=== PATIENT | female | born 1980 | race Caucasian/White ===

== ENCOUNTER 2018-07-23 08:31 | Emergency (ER) | payer BC ==
[~2018-07-23] VITALS: Wt 78.0 kg
[2018-07-23 08:37] VITALS: BP 123/78; PULSE 66; RESP 18
[2018-07-23] MEDS ORDERED: morphine 4 MG/ML VIAL IV STA (09:11)
[2018-07-23] MEDS ORDERED: ONDANSETRON 4 MG INJ IV STA (09:11)
[2018-07-23] MEDS ORDERED: SOD CHLORIDE 0.9% 1,000 ML IV STA (09:11)
[2018-07-23] MEDS ORDERED: ACET500C5 PO (11:24)
--- NOTE | 2018-07-23 15:28 | ERD ---
ER Documentation Chief Complaint Chief Complaint GENERAL FRONTAL ABD PAIN SINCE LAST NIGHT. NO N/V. NO DYSURIA HPI 38-year-old female patient with no significant past medical history presents to ED complaining of abdominal pain that started last night. Reports that patient's abdominal pain is very tender to palpation. Denies any vomiting, diarrhea, neck stiffness. Denies any dysuria, urgency, frequency, hematuria. Denies any chest pain, shortness of breath, fever. Denies any injuries or trauma. ROS All systems reviewed and are negative except as per history of present illness. Medications Home Meds Active Scripts Acetaminophen* (Tylophen*) 500 Mg Capsule, 1 CAP PO Q6H PRN for PAIN AND OR ELEVATED TEMP, #20 CAP Prov:MIRNA DOMINGO PA-C 07/23/18 Allergies Allergies: Coded Allergies: No Known Allergy (Unverified , 07/23/18) PMhx/Soc Medical and Surgical Hx: pt denies Medical Hx, pt denies Surgical Hx Hx Alcohol Use: No Hx Substance Use: No Hx Tobacco Use: No Smoking Status: Never smoker Physical Exam Vitals Vital Signs Date Temp Pulse Resp B/P (MAP) Pulse Ox O2 O2 Flow FiO2 Time Delivery Rate 07/23/18 98.6 66 18 123/78 98 08:37 (93) Physical Exam Const: Pug-[id number]-[id number], well-nourished. In no acute distress. Head: Atraumatic, normocephalic. No hematoma. No baer sign. Eyes: Normal Conjunctiva without injection. No purulent discharge. ENT: Normal external ear, nose. Moist oropharynx without tonsillar exudates. Non-erythematous pharynx. Uvula midline. No drooling. No trismus. Neck: No cervical midline tenderness. Full range of motion. No meningismus. No cervical lymphadenopathy. No JVD. Resp: Clear to auscultation bilaterally. No wheezing, rhonchi, rales, or crackles. No accessory muscle use. No retractions. Cardio: Regular rate and rhythm. No murmurs, rubs or gallops. Abd: Soft, mid abdominal tenderness, non distended. Normal bowel sounds. No palpable masses. No rebound tenderness. No guarding. Negative McBurney's point. Negative psoas sign. Negative obturator sign. Skin: No petechiae or rashes Back: No midline tenderness. No CVA tenderness. Ext: No cyanosis, or edema. Neur: Awake and alert. Normal gait. Normal coordination. Psych: Normal Mood and Affect Result Diagram: 07/23/1893007/23/18930 Results 24 hrs Laboratory Tests Test 07/23/18 09:21 07/23/18 09:31 POC Beta HCG, Qualitative NEGATIVE White Blood Count 10.0 10^3/ul Red Blood Count 4.71 10^6/ul Hemoglobin 13.3 g/dl Hematocrit 41.1 % Mean Corpuscular Volume 87.3 fl Mean Corpuscular Hemoglobin 28.2 pg Mean Corpuscular Hemoglobin Concent 32.4 g/dl Red Cell Distribution Width 11.9 % Platelet Count 291 10^3/UL Mean Platelet Volume 9.7 fl Immature Granulocytes % 0.300 % Neutrophils % 64.3 % Lymphocytes % 25.4 % Monocytes % 6.4 % Eosinophils % 2.9 % Basophils % 0.7 % Nucleated Red Blood Cells % 0.0 /100WBC Immature Granulocytes # 0.030 10^3/ul Neutrophils # 6.4 10^3/ul Lymphocytes # 2.5 10^3/ul Monocytes # 0.6 10^3/ul Eosinophils # 0.3 10^3/ul Basophils # 0.1 10^3/ul Nucleated Red Blood Cells # 0.0 10^3/ul Urine Color COLORLESS Urine Clarity CLEAR Urine pH 6.0 Urine Specific [place] 1.003 Urine Ketones NEGATIVE mg/dL Urine Nitrite NEGATIVE mg/dL Urine Bilirubin NEGATIVE mg/dL Urine Urobilinogen NEGATIVE mg/dL Urine Leukocyte Esterase NEGATIVE [place]/ul Urine Hemoglobin NEGATIVE mg/dL Urine Glucose NEGATIVE mg/dL Urine Total Protein NEGATIVE mg/dl Sodium Level 141 mmol/L Potassium Level 3.9 mmol/L Chloride Level 102 mmol/L Carbon Dioxide Level 27 mmol/L Anion Gap 12 Blood Urea Nitrogen 9 mg/dl Creatinine 0.59 mg/dl Est Glomerular Filtrat Rate mL/min > 60 mL/min Glucose Level 103 mg/dl Calcium Level 9.7 mg/dl Total Bilirubin 0.4 mg/dl Direct Bilirubin 0.00 mg/dl Indirect Bilirubin 0.4 mg/dl Aspartate Amino Transf (AST/SGOT) 26 IU/L Alanine Aminotransferase (ALT/SGPT) 14 IU/L Alkaline Phosphatase 78 IU/L Total Protein 8.7 g/dl Albumin 4.8 g/dl Globulin 3.90 g/dl Albumin/Globulin Ratio 1.23 Lipase 44 U/L Current Medications Medications Dose Sig/Macario Start Time Status Last (Trade) Ordered Route PRN Stop Time Admin Dose Reason Admin Sodium 1,000 ml @ Q1H STAT 07/23/18 DC 07/23/18 Chloride 1,000 mls/hr IV 09:11 09:40 07/23/18 10:10 Morphine 4 mg ONCE STAT 07/23/18 DC 07/23/18 Sulfate IV 09:11 09:39 (morphine) 07/23/18 09:13 Ondansetron 4 mg ONCE STAT 07/23/18 DC 07/23/18 HCl (Zofran IV 09:11 09:39 Inj) 07/23/18 09:13 Procedures/MDM 38-year-old female patient with no significant past history presents ED complaining of abdominal pain that started last night. Patient is afebrile and nontoxic-appearing. Patient was further worked up with CBC, CMP, lipase, UA, CT of the abdomen and pelvis without contrast. Patient's pain and symptoms have improved after treatment with 1 L normal saline, 4 mg IV Zofran, 4 mg IV morphine. CBC: No leukocytosis. No e/o of systemic infection. No e/o anemia. CMP: No e/o severe acidosis, alkalosis, renal failure, diabetic ketoacidosis, liver disease Lipase within normal limits. Urine: No leukocyte esterase, no nitrites, no hematuria. Urine : Negative IMPRESSION: 1. Hepatomegaly and mild hepatic steatosis. 2. Mild fat-containing umbilical hernia, without incarceration. 3. No evidence of bowel obstruction, mass, lymphadenopathy, or acute inflammatory process. Patient has a mild fat-containing umbilical hernia without any incarceration. Low suspicion for strangulation. Low suspicion for ectopic , ovarian torsion, gastritis, GERD, peptic ulcer disease, cholecystitis, choledocholithiasis, cholangitis, pancreatitis, appendicitis, bowel obstruction, ileus, volvulus, nephrolithiasis, pyelonephritis, hepatitis, perforated viscus, diverticulitis, strangulated/incarcerated hernia, DKA, acute abdomen, mesenteric ischemia or other emergent conditions. Diagnosis: Abdominal pain Discharge medications: Tylenol Follow up with primary care physician in 1-2 days for referral to dental biller. Instructed patient to return to the ED sooner for any worsening symptoms. Patient's questions were answered. Patient understood and agreed with discharge plan. Patient discharged stable. Departure Diagnosis: Primary Impression: Abdominal pain Abdominal location: unspecified location Qualified Codes: R10.9 - Unspecified abdominal pain Condition: Stable Patient Instructions: Abdominal Pain, How a Hernia Develops, Hernia (Inguinal, Ventral, Umbilical) Referrals: [facility] YOU HAVE RECEIVED A MEDICAL SCREENING EXAM AND THE RESULTS INDICATE THAT YOU DO NOT HAVE A CONDITION THAT REQUIRES URGENT TREATMENT IN THE EMERGENCY DEPARTMENT. FURTHER EVALUATION AND TREATMENT OF YOUR CONDITION CAN WAIT UNTIL YOU ARE SEEN IN YOUR DOCTORS OFFICE WITHIN THE NEXT 1-2 DAYS. IT IS YOUR RESPONSIBILITY TO MAKE AN APPOINTMENT FOR FOLOW-UP CARE. IF YOU HAVE A PRIMARY DOCTOR --you should call your primary doctor and schedule an appointment IF YOU DO NOT HAVE A PRIMARY DOCTOR YOU CAN CALL OUR PHYSICIAN REFERRAL HOTLINE AT IF YOU CAN NOT AFFORD TO SEE A PHYSICIAN YOU CAN CHOSE FROM THE FOLLOWING [facility] [address] [facility]. [facility] [address] [facility] [address] [facility] [address] [facility]. [facility] [address] [facility]. [facility]. [address] [facility]. [facility] YOU HAVE RECEIVED A MEDICAL SCREENING EXAM AND THE RESULTS INDICATE THAT YOU DO NOT HAVE A CONDITION THAT REQUIRES URGENT TREATMENT IN THE EMERGENCY DEPARTMENT. FURTHER EVALUATION AND TREATMENT OF YOUR CONDITION CAN WAIT UNTIL YOU ARE SEEN IN YOUR DOCTORS OFFICE WITHIN THE NEXT 1-2 DAYS. IT IS YOUR RESPONSIBILITY TO MAKE AN APPOINTMENT FOR FOLOW-UP CARE. IF YOU HAVE A PRIMARY DOCTOR --you should call your primary doctor and schedule and appointment IF YOU DO NOT HAVE A PRIMARY DOCTOR YOU CAN CALL OUR PHYSICIAN REFERRAL HOTLINE AT . IF YOU CAN NOT AFFORD TO SEE A PHYSICIAN YOU CAN CHOSE FROM THE FOLLOWING [facility] INSTITUTIONS: [facility] [address] [place] [address] [facility] [address] [place] [address] [facility] + [facility] [address] [place] [address] [facility] Additional Instructions: Call your primary care doctor TOMORROW for an appointment during the next 2-3 days for a referral to a general surgeon.See the doctor sooner or return here if your condition worsens before your appointment time. MIRNA DOMINGO PA-C Jul 23, 2018 15:28
== END 2018-07-23 11:52 | disposition home or self-care (01) ==
LOC: FTE 08:31
DX: R10.9 Unspecified abdominal pain (principal)
CPT/HCPCS: 36415; 74176; 80053; 81003; 81025; 83690; 85025; 96361; 96374; 96375; 99285; J2270; J2405; J7030